=== PATIENT | male | born 1945 | race Caucasian/White ===

== ENCOUNTER 2017-05-11 09:58 | Emergency (ER) | payer MEDICARE, OTHER ==
[~2017-05-11] VITALS: Ht 172.7 cm; Wt 83.0 kg
[~2017-05-11 09:58] MED LIST: ACET-1862 PO; ALFU10TA28 PO; AMLO-96 PO; FAMO20TA28 PO; FEN145 PO; FLUC150T40 PO; HYDR-385 PO; IBUP800T37 PO; LAMO100T52 PO; LEVO-85 PO; LINA5TAB PO; LISI-362 PO; METF-420 PO; PHEN200T32 PO; SIMV-49 PO; SITA100T PO; SITA1TBM4 PO; SULI200T84 PO
[2017-05-11] MEDS ORDERED: LITH600C6 PO (10:08)
--- NOTE | 2017-05-11 10:13 | ER Report ---
History and Physical Time Seen By MD: 10:12 Hx. of Stated Complaint: PT. STATES HE IS STRESSED OUT FROM A LOT OF FAMILY DYNAMICS WITH HIS DAUGHTER. LOSS OF APPETITE, TROUBLE SLEEPING AND PHYSICAL AILMENTS. HPI/ROS Known history of bi polar disorder. Seen at [facility]. Currently taking [place]. Reports confusion, decreased sleep, agitation, family stressors, and an inability to focus. Denies SI/HI. Also reports a fall yesterday just outside of [place] on [place] sidewalk. No external signs of trauma. Says he feels so confused that he thinks maybe he shouldn't be driving. Has been taking his so to work at 0300 or 0400 most days. Appears to be manic. Disorganized and somewhat tangential. Preseverates about his daughter taking out a restraining order on him. He has the paperwork with him, and there is indeed a restraining order. Also in his packet that he brought are a series of emails he sent to various people about how he thinks his daughter's adopted children should be taken away from her. The emails are [employer]. Remainder of the 14 system rev: Yes Allergies: Coded Allergies: No Known Drug Allergies (Unverified , 05/11/17) Home Meds Reported Medications [place] Carbonate (LITHIUM CARBONATE) 600 Mg Capsule, 600 MG PO BID, CAPSULE 05/11/17 Sitagliptin Phos/Metformin Hcl (JANUMET XR 50-1,000 MG TABLET) 1 Each Tbmp.24hr , 1 EACH PO DAILY 02/14/17 Fenofibrate,Micronized (TRICOR) 145 Mg Tab, 145 MG PO QDAY, #10 TAB 02/14/17 Simvastatin (SIMVASTATIN) 20 Mg Tablet, 20 MG PO HS, TAB 02/14/17 Lisinopril (LISINOPRIL) 10 Mg Tablet, 10 MG PO QDAY, TAB 02/14/17 Lamotrigine (LAMOTRIGINE) 100 Mg Tablet, 100 MG PO HS 02/14/17 Acetaminophen (ARTHRITIS PAIN RELIEVER) 650 Mg Tablet.er, 650 MG PO DAILY Y for PAIN 02/14/17 Linagliptin (TRADJENTA) 5 Mg Tablet, 5 MG PO 11/27/13 Sulindac (SULINDAC) 200 Mg Tablet, 200 MG PO 11/27/13 Amlodipine Besylate (AMLODIPINE BESYLATE) 5 Mg Tablet, 1 TAB PO QDAY, TAB TAKE ONE TABLET BY MOUTH EVERY DAY 11/27/13 Reviewed Nurses Notes: Yes Old Medical Records Reviewed: Yes Hx Smoking: No Smoking Status: Never Smoker Exposure to Second Hand Smoke?: No Hx Substance Use Disorder: No Hx Alcohol Use: Yes Constitutional Intake and Output 05/11/17 05/11/17 05/12/17 15:00 23:00 07:00 Intake Total 1000 ml Balance 1000 ml Physical Exam General Appearance: The patient is alert, has no immediate need for airway protection and no signs of toxicity. Eyes: Pupils equal and round no pallor or injection. ENT, Mouth: Mucous membranes are moist. Respiratory: There are no retractions, lungs are clear to auscultation. Cardiovascular: Regular rate and rhythm. Gastrointestinal: Abdomen is soft and non tender, no masses, bowel sounds normal. Neurological: grossly normal. Normal gait Skin: Warm and dry, no rashes. Musculoskeletal: No bony TTP Neck is supple non tender. Extremities are nontender, nonswollen and have full range of motion. DIFFERENTIAL DIAGNOSIS: After history and physical exam differential diagnosis was considered for altered mental status including but not limited to hypoglycemia, infectious process, electrolyte abnormality, head injury and intoxicants. Medical Decision Making Data Points Result Diagram: 05/11/17 1020 05/11/17 1020 Laboratory Hematology Test 05/11/17 10:20 05/11/17 10:24 05/11/17 13:45 Red Blood Count 5.01 M/uL (4.00-5.60) Mean Corpuscular Volume 88.2 fL (80.0-96.0) Mean Corpuscular Hemoglobin 30.6 pg (26.0-33.0) Mean Corpuscular Hemoglobin Concent 34.7 g/dL (32.0-36.0) Red Cell Distribution Width 13.6 % (11.5-14.5) Mean Platelet Volume 8.1 fL (7.2-11.1) Neutrophils (%) (Auto) 81.5 % (39.4-72.5) Lymphocytes (%) (Auto) 10.3 % (17.6-49.6) Monocytes (%) (Auto) 6.6 % (4.1-12.4) Eosinophils (%) (Auto) 1.0 % (0.4-6.7) Basophils (%) (Auto) 0.6 % (0.3-1.4) Nucleated RBC Relative Count (auto) 0.0 /100WBC Neutrophils # (Auto) 9.9 K/uL (2.0-7.4) Lymphocytes # (Auto) 1.3 K/uL (1.3-3.6) Monocytes # (Auto) 0.8 K/uL (0.3-1.0) Eosinophils # (Auto) 0.1 K/uL (0.0-0.5) Basophils # (Auto) 0.1 K/uL (0.0-0.1) Nucleated RBC Absolute Count (auto) 0.00 K/uL Sodium Level 138 mmol/L (137-145) Potassium Level 3.8 mmol/L (3.5-5.0) Chloride Level 104 mmol/L (98-107) Carbon Dioxide Level 23 mmol/L (22-30) Blood Urea Nitrogen 19 mg/dl (9-21) Creatinine 1.10 mg/dl (0.66-1.25) Glomerular Filtration Rate Calc > 60.0 Random Glucose 182 mg/dl (75-110) Calcium Level 10.7 mg/dl (8.4-10.2) Magnesium Level 1.7 mg/dl (1.7-2.2) Total Bilirubin 0.7 mg/dl (0.2-1.3) Aspartate Amino Transf (AST/SGOT) 28 U/L (0-35) Alanine Aminotransferase (ALT/SGPT) 29 U/L (0-56) Alkaline Phosphatase 66 U/L (0-126) Total Protein 6.9 gm/dl (6.3-8.2) Albumin 3.9 g/dl (3.5-5.0) Thyroid Stimulating Hormone (TSH) 2.41 uIU/ml (0.46-4.68) Salicylates Level < 10 mg/L Salicylate Last Dose Date unknown Acetaminophen Level < 10 ug/ml Serum Alcohol < 10 mg/dl Urine Color Yellow Urine Clarity Clear Urine pH 7.0 pH (4.8-9.5) Urine Specific [place] 1.013 Urine Protein Negative mg/dL (NEGATIVE) Urine Glucose (UA) Negative mg/dL (NEGATIVE) Urine Ketones Negative mg/dL (NEGATIVE) Urine Blood Negative (NEGATIVE) Urine Nitrite Negative (NEGATIVE) Urine Bilirubin Negative (NEGATIVE) Urine Urobilinogen Negative mg/dL (0.2-1.9) Urine Leukocyte Esterase Negative (NEGATIVE) Urine RBC <1 /HPF (0-2/HPF) Urine WBC <1 /HPF (0-5/HPF) Urine Squamous Epithelial Cells None /LPF (</=FEW) Urine Bacteria Negative /HPF (NONE-FEW) Urine Mucus None /HPF (NONE-FEW) Urine Opiates Screen Negative Urine Barbiturates Screen Negative Ur Tricyclic Antidepressants Screen Negative Urine Phencyclidine Screen Negative Urine Amphetamines Screen Negative Urine Benzodiazepines Screen Negative Urine Cocaine Screen Negative Urine Cannabinoids Screen Negative [place] Level 1.4 mmol/L (0.6-1.2) Chemistry Test 05/11/17 10:20 05/11/17 10:24 05/11/17 13:45 White Blood Count 12.1 k/uL (4.5-11.0) Red Blood Count 5.01 M/uL (4.00-5.60) Hemoglobin 15.3 g/dL (14.0-18.0) Hematocrit 44.2 % (42.0-52.0) Mean Corpuscular Volume 88.2 fL (80.0-96.0) Mean Corpuscular Hemoglobin 30.6 pg (26.0-33.0) Mean Corpuscular Hemoglobin Concent 34.7 g/dL (32.0-36.0) Red Cell Distribution Width 13.6 % (11.5-14.5) Platelet Count 312 K/uL (150-450) Mean Platelet Volume 8.1 fL (7.2-11.1) Neutrophils (%) (Auto) 81.5 % (39.4-72.5) Lymphocytes (%) (Auto) 10.3 % (17.6-49.6) Monocytes (%) (Auto) 6.6 % (4.1-12.4) Eosinophils (%) (Auto) 1.0 % (0.4-6.7) Basophils (%) (Auto) 0.6 % (0.3-1.4) Nucleated RBC Relative Count (auto) 0.0 /100WBC Neutrophils # (Auto) 9.9 K/uL (2.0-7.4) Lymphocytes # (Auto) 1.3 K/uL (1.3-3.6) Monocytes # (Auto) 0.8 K/uL (0.3-1.0) Eosinophils # (Auto) 0.1 K/uL (0.0-0.5) Basophils # (Auto) 0.1 K/uL (0.0-0.1) Nucleated RBC Absolute Count (auto) 0.00 K/uL Glomerular Filtration Rate Calc > 60.0 Calcium Level 10.7 mg/dl (8.4-10.2) Magnesium Level 1.7 mg/dl (1.7-2.2) Total Bilirubin 0.7 mg/dl (0.2-1.3) Aspartate Amino Transf (AST/SGOT) 28 U/L (0-35) Alanine Aminotransferase (ALT/SGPT) 29 U/L (0-56) Alkaline Phosphatase 66 U/L (0-126) Total Protein 6.9 gm/dl (6.3-8.2) Albumin 3.9 g/dl (3.5-5.0) Thyroid Stimulating Hormone (TSH) 2.41 uIU/ml (0.46-4.68) Salicylates Level < 10 mg/L Salicylate Last Dose Date unknown Acetaminophen Level < 10 ug/ml Serum Alcohol < 10 mg/dl Urine Color Yellow Urine Clarity Clear Urine pH 7.0 pH (4.8-9.5) Urine Specific [place] 1.013 Urine Protein Negative mg/dL (NEGATIVE) Urine Glucose (UA) Negative mg/dL (NEGATIVE) Urine Ketones Negative mg/dL (NEGATIVE) Urine Blood Negative (NEGATIVE) Urine Nitrite Negative (NEGATIVE) Urine Bilirubin Negative (NEGATIVE) Urine Urobilinogen Negative mg/dL (0.2-1.9) Urine Leukocyte Esterase Negative (NEGATIVE) Urine RBC <1 /HPF (0-2/HPF) Urine WBC <1 /HPF (0-5/HPF) Urine Squamous Epithelial Cells None /LPF (</=FEW) Urine Bacteria Negative /HPF (NONE-FEW) Urine Mucus None /HPF (NONE-FEW) Urine Opiates Screen Negative Urine Barbiturates Screen Negative Ur Tricyclic Antidepressants Screen Negative Urine Phencyclidine Screen Negative Urine Amphetamines Screen Negative Urine Benzodiazepines Screen Negative Urine Cocaine Screen Negative Urine Cannabinoids Screen Negative [place] Level 1.4 mmol/L (0.6-1.2) Toxicology Test 05/11/17 10:20 05/11/17 10:24 05/11/17 13:45 Salicylates Level < 10 mg/L Salicylate Last Dose Date unknown Acetaminophen Level < 10 ug/ml Serum Alcohol < 10 mg/dl Urine Opiates Screen Negative Urine Barbiturates Screen Negative Ur Tricyclic Antidepressants Screen Negative Urine Phencyclidine Screen Negative Urine Amphetamines Screen Negative Urine Benzodiazepines Screen Negative Urine Cocaine Screen Negative Urine Cannabinoids Screen Negative [place] Level 1.4 mmol/L (0.6-1.2) Urinalysis Test 05/11/17 10:24 Urine Color Yellow Urine Clarity Clear Urine pH 7.0 pH (4.8-9.5) Urine Specific [place] 1.013 Urine Protein Negative mg/dL (NEGATIVE) Urine Glucose (UA) Negative mg/dL (NEGATIVE) Urine Ketones Negative mg/dL (NEGATIVE) Urine Blood Negative (NEGATIVE) Urine Nitrite Negative (NEGATIVE) Urine Bilirubin Negative (NEGATIVE) Urine Urobilinogen Negative mg/dL (0.2-1.9) Urine Leukocyte Esterase Negative (NEGATIVE) Urine RBC <1 /HPF (0-2/HPF) Urine WBC <1 /HPF (0-5/HPF) Urine Squamous Epithelial Cells None /LPF (</=FEW) Urine Bacteria Negative /HPF (NONE-FEW) Urine Mucus None /HPF (NONE-FEW) ED Course/Re-evaluation ED Course Known history of bi polar disorder. Seen at [facility]. Currently taking [place] which is mildly elevated. 1.5 before fluids and 1.4 after 1L NS. Reports confusion, decreased sleep, agitation, family stressors, and an inability to focus. He was tearful at times, but denies SI/HI. Also reports a fall yesterday just outside of [place] on the sidewalk. No external signs of trauma. Says he feels so confused that he thinks maybe he shouldn't be driving. Has been taking his so to work at 0300 or 0400 most days. Appears to be manic. Disorganized and somewhat tangential. Is amenable for psych admission. Decision to Disposition Date: May 11, 2017 Decision to Disposition Time: 15:22 Depart Departure Impression: Primary Impression: Manic behavior Condition: Improved Disposition: Admitted from ER QAMAR PERRIN MD May 11, 2017 10:13
[2017-05-11 10:33] LABS: PLATELET COUNT, AUTOMATED 312 K/uL (150-450)
[2017-05-11] MEDS ORDERED: NS(*) 0.9% 1000 ML BAG 1,000 ML IV ONE (12:40)
--- NOTE | 2017-05-11 13:49 | EKG ---
FACILITY: [facility] PATIENT NAME: CHING NAVA : [id number] MR: [id number] V: [id number] EXAM DATE: ORDERING PHYSICIAN: QAMAR PRERIN TECHNOLOGIST: GUY León Reason : PYSCH PROBLEM Blood Pressure : / mmHG Vent. Rate : 066 BPM Atrial Rate : 066 BPM P-R Int : 206 ms QRS Dur : 106 ms QT Int : 418 ms P-R-T Axes : 055 000 054 degrees QTc Int : 438 ms Normal sinus rhythm Nonspecific T wave abnormality Abnormal ECG When compared with ECG of 28-NOV-2013 08:56, No significant change was found Confirmed by SULEIMAN MOLINA ([id number]) on 05/12/2017 2:32:40 AM Referred By: Confirmed By:SULEIMAN MOLINA
--- NOTE | 2017-05-11 15:43 | RADIOLOGY IMAGING REPORT ---
FACILITY: [facility] PATIENT NAME: Jose Luis Carroll : 1945 MR: [id number] V: [id number] EXAM DATE: ORDERING PHYSICIAN: QAMAR PERRIN TECHNOLOGIST: Location: [facility] [place] Patient: Jose Luis Carroll : 1945 Visit/Account:[id number] Date of Sevice: 05/11/2017 CT Head without contrast Indication: Fall yesterday. Comparison: None available Technique: Axial CT images were obtained through the brain from the skull base to the vertex without administration of IV contrast. Reformatted coronal and sagittal images were also obtained. One of the following dose optimization techniques was utilized in the performance of this exam: autom ated exposure control; adjustment of the mA and/or kV according to the patient's size; or use of an i terative reconstruction technique. Specific details can be referenced in the facility's radiology CT exam operational policy. Findings: No evidence of mass, mass effect, or midline shift. No acute intracranial hemorrhage or acute territorial infarction. Along the lateral right frontal lobe is a prominent CSF space measuring 5.0 x 3.0 cm [place]oun[place] of 14 similar to the CSF. There is no suggestion of blood in this region. There is no other extra-axial fl uid collection. No hydrocephalus. No abnormal densities otherwise seen. The jurado/white matter differe ntiation appears normal. There is mild bilateral internal carotid artery calcifications. Bony structures show no fractures or lesions. The visualized paranasal sinuses and mastoid air cells are clear. IMPRESSION: 1. No acute intracranial abnormality. 2. Prominent CSF space along the right frontal lobe which may represent a prominent CSF space versus arachnoid cyst. No discrete indication of acute hemorrhage. Report Dictated By: Jose Meadows at 05/11/2017 3:32 PM Report E-Signed By: Jose Meadows at 05/11/2017 3:39 PM WSN:[id number]
[2017-05-11 16:01] VITALS: BP 181/104
== END 2017-05-11 16:08 | disposition other institution (70) ==
LOC: ER 09:59
DX: F30.9 Manic episode, unspecified (principal)
CPT/HCPCS: 70450; 80178; 80305; 81001; 83735; 84443; 85025; 93005; 96360; 99285; G0480; J7030; 80320; 80329; 82040; 82247; 82310; 82374; 82435; 82565; 82947; 84075; 84132; 84155; 84295; 84450; 84460; 84520

== ENCOUNTER 2017-05-11 15:14 | Inpatient (IN) | payer MEDICARE, OTHER ==
[~2017-05-11] VITALS: Ht 172.7 cm; Wt 77.1 kg
[~2017-05-11 15:14] MED LIST changes: +LITH600C6 PO
[2017-05-11] MEDS ORDERED: MAG HYD/AL HYD/SIMETH 30ML UDC PO PRN (16:30)
[2017-05-11] MEDS: lamoTRIgine 100 MG TAB PO SCH (21:00)
[2017-05-11] MEDS: QUEtiapine FUM 25 MG TAB PO SCH (21:00)
[2017-05-11 22:01] VITALS: BP 139/87
[2017-05-12 05:57] VITALS: BP 116/61
[2017-05-12] MEDS: ACETAMINOPHEN 325 MG TAB PO PRN ×2 (08:27→17:55)
[2017-05-12] MEDS: MULTIVITAMINS TAB PO SCH (08:27)
[2017-05-12] MEDS ORDERED: METFORMIN HCL PO SCH (11:20)
[2017-05-12] MEDS ORDERED: SITAGLIPTIN PHOS PO SCH (11:20)
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
[2017-05-12 18:35] VITALS: BP 165/62
[2017-05-12] MEDS: QUEtiapine FUM 25 MG TAB PO SCH (20:23)
[2017-05-12] MEDS: lamoTRIgine 100 MG TAB PO SCH (20:24)
[2017-05-13 03:53] VITALS: BP 165/84
[2017-05-13] MEDS: ACETAMINOPHEN 325 MG TAB PO PRN ×2 (07:31→17:43)
[2017-05-13] MEDS: MULTIVITAMINS TAB PO SCH (08:34)
[2017-05-13] MEDS: PSYLLIUM 28% 1 PACKET PO SCH (08:35)
[2017-05-13] MEDS: metFORMIN HCL XR 500 MG TABCR PO SCH (08:54)
[2017-05-13 12:28] VITALS: BP 189/85
--- NOTE | 2017-05-13 15:59 | BHS Progress Note ---
[facility] - Subjective Progress Notes Subjective "I have decided I am an alcoholic. I will stop drinking. I think I was drunk and I took too much of my lithium by mistake." Pt is remorseful today about his drinking and verbalizing intention to quit completely. Pt seen with team and his son present who is an important support for pt. Pt is recovering from lithium toxicity well, he says he feels almost back to baseline. Gait is steady , speech is clear,. Pt irritable with nursing staff this morning, later feeling remorseful about that. Slept fitfully last night, multiple awakenings to urinate, denies any other sx's of UTI. Says he was drinking a lot of water - - advised him to limit fluid after dinner. [place] lavel down to 0.6 this am, will restart lithium at 300 mg q hs and check level tomorrow-- depending on result may or may not go to 600mg tomorrow. Tolerating lamictal 150 mg well , denies rash, denies visual changes. Will continue therapy focus on alcohol education and sobriety supports. Suicidal Ideation: None Homicidal Ideation: None S - Objective Physical Exam Vital Signs Vital Signs 05/13/17 12:28 Temp 98.6 Pulse 74 Resp 16 B/P (MAP) 189/85 (119) Pulse Ox 95 O2 Delivery Room Air Muscle Strength and Tone: WNL S Medications Reviewed: Side Effects, Benefits of Medication Allergies Reviewed: Yes Mental Status Exam General Appearance: Casual, Good Eye Contact, Cooperative, Good Interaction Speech: Clear, Spontaneous, Normal Rate, Normal Rhythm, Normal Volume, Normal Tone Mood: Dysthmic/Depressed Affect: Other (labile) Thought Process: Organized, Logical, Goal Directed Thought Content: No Suicidal Ideation, No Homicidal Ideation, No Delusions, No Auditory Halllucinations, No Visual Hallucinations, No Thought Broadcasting, No Ideas of Reference, No Obsessions, No Compulsions, No Other Sensorium: Clear Cognition: Alert & Oriented-Person, Alert & Oriented-Place, Alert & Oriented- Time, [id number] Memory: Immediate, Recent Intelligence: Average Insight Judgment: Fair Lab Hematology Test 05/11/17 17:19 05/12/17 05:35 05/13/17 06:25 Whole Blood Glucose 179 mg/DL (75-110) Hemoglobin A1c 7.1 % (4.6-6.0) Triglycerides Level 173 mg/dl (0-250) Cholesterol Level 146 mg/dl (75-200) LDL Cholesterol 80 mg/dl VLDL Cholesterol 35 mg/dl HDL Cholesterol 31 mg/dl Percent HDL Cholesterol 21.0 % Cholesterol Ratio (LDL/HDL) 2.58 Cholesterol/HDL Ratio 4.7 Prostate Specific Antigen 3.31 ng/ml (0.0-4.0) Free Thyroxine 1.14 ng/dl (0.78-2.19) [place] Level 0.6 mmol/L (0.6-1.2) Chemistry Test 05/11/17 17:19 05/12/17 05:35 05/13/17 06:25 Whole Blood Glucose 179 mg/DL (75-110) Hemoglobin A1c 7.1 % (4.6-6.0) Triglycerides Level 173 mg/dl (0-250) Cholesterol Level 146 mg/dl (75-200) LDL Cholesterol 80 mg/dl VLDL Cholesterol 35 mg/dl HDL Cholesterol 31 mg/dl Percent HDL Cholesterol 21.0 % Cholesterol Ratio (LDL/HDL) 2.58 Cholesterol/HDL Ratio 4.7 Prostate Specific Antigen 3.31 ng/ml (0.0-4.0) Free Thyroxine 1.14 ng/dl (0.78-2.19) [place] Level 0.6 mmol/L (0.6-1.2) Toxicology Test 05/13/17 06:25 [place] Level 0.6 mmol/L (0.6-1.2) [facility] Assessment and Plan [id number] Encounter Date: May 13, 2017 [id number] Encounter Time: 10:00 [facility] Plan: Admit to Unit, Necessary Precautions, Individual/Group Therapy, Admin /Titrate Meds, Educate Patient Tobacco Medications: Not Appropriate Condition Problems: (1) [place] toxicity (2) Bipolar I disorder (3) Alcohol use disorder, moderate, in controlled environment LULU ZAVALA MD May 13, 2017 15:59
[2017-05-13 17:33] VITALS: BP 196/92
[2017-05-13] MEDS: lamoTRIgine 100 MG TAB PO SCH (20:52)
[2017-05-13] MEDS: QUEtiapine FUM 25 MG TAB PO SCH (20:52)
[2017-05-13] MEDS ORDERED: LITHIUM CARBONATE 300 MG CAP PO SCH (21:00)
[2017-05-13 21:05] VITALS: BP 194/96
[2017-05-14 06:48] VITALS: BP 138/74
[2017-05-14] MEDS: PSYLLIUM 28% 1 PACKET PO SCH (08:32)
[2017-05-14] MEDS: MULTIVITAMINS TAB PO SCH (08:32)
[2017-05-14] MEDS: metFORMIN HCL XR 500 MG TABCR PO SCH (08:32)
[2017-05-14] MEDS: ACETAMINOPHEN 325 MG TAB PO PRN ×2 (08:32→16:31)
[2017-05-14 10:50] VITALS: BP 177/85
--- NOTE | 2017-05-14 11:03 | BHS Progress Note ---
[facility] - Subjective Progress Notes Subjective Pt seen with his son and team. Pt says he is feeling better, and son agrees he is almost back to baseline though still has a little bit of word-finding difficulty which he points out: "See I'm still a little foggy." Pt has rash on the back of his left leg, about 4" by 3", dry, red. It does not look like a lamictal rash to me. We checked and there are no other areas of rash. Pt says he noticed it last night and it is a little better today. We outlined rash margins with a Sharpie and will continue the lamictal and continue to monitor the rash. Pt took 300 mg of lithium last night, he slept a bit better. Level was 0.5 this am. Will increase dose to 600 mg tonight. Suicidal Ideation: None Homicidal Ideation: None [facility] - Objective Physical Exam Vital Signs Vital Signs 05/13/17 05/14/17 17:33 06:48 Temp 99.1 Pulse 74 Resp 16 B/P (MAP) 138/74 (95) Pulse Ox 94 O2 Delivery Room Air Muscle Strength and Tone: WNL [facility] Medications Reviewed: Side Effects, Benefits of Medication Allergies Reviewed: Yes Mental Status Exam General Appearance: Casual, Good Eye Contact, Cooperative, Good Interaction Speech: Clear, Spontaneous, Normal Rate, Normal Rhythm, Normal Volume, Normal Tone Mood: Dysthmic/Depressed Affect: Other (labile) Thought Process: Organized, Logical, Goal Directed Thought Content: No Suicidal Ideation, No Homicidal Ideation, No Delusions, No Auditory Halllucinations, No Visual Hallucinations, No Thought Broadcasting, No Ideas of Reference, No Obsessions, No Compulsions, No Other Sensorium: Clear Cognition: Alert & Oriented-Person, Alert & Oriented-Place, Alert & Oriented- Time, [id number] Memory: Immediate, Recent Intelligence: Average Insight Judgment: Fair Lab Hematology Test 05/11/17 17:19 05/12/17 05:35 05/14/17 07:04 Whole Blood Glucose 179 mg/DL (75-110) Hemoglobin A1c 7.1 % (4.6-6.0) Triglycerides Level 173 mg/dl (0-250) Cholesterol Level 146 mg/dl (75-200) LDL Cholesterol 80 mg/dl VLDL Cholesterol 35 mg/dl HDL Cholesterol 31 mg/dl Percent HDL Cholesterol 21.0 % Cholesterol Ratio (LDL/HDL) 2.58 Cholesterol/HDL Ratio 4.7 Prostate Specific Antigen 3.31 ng/ml (0.0-4.0) Free Thyroxine 1.14 ng/dl (0.78-2.19) Free Triiodothyronine 2.9 pg/mL (2.4-4.2) Sweetser Level 0.5 mmol/L (0.6-1.2) Chemistry Test 05/11/17 17:19 05/12/17 05:35 05/14/17 07:04 Whole Blood Glucose 179 mg/DL (75-110) Hemoglobin A1c 7.1 % (4.6-6.0) Triglycerides Level 173 mg/dl (0-250) Cholesterol Level 146 mg/dl (75-200) LDL Cholesterol 80 mg/dl VLDL Cholesterol 35 mg/dl HDL Cholesterol 31 mg/dl Percent HDL Cholesterol 21.0 % Cholesterol Ratio (LDL/HDL) 2.58 Cholesterol/HDL Ratio 4.7 Prostate Specific Antigen 3.31 ng/ml (0.0-4.0) Free Thyroxine 1.14 ng/dl (0.78-2.19) Free Triiodothyronine 2.9 pg/mL (2.4-4.2) Sweetser Level 0.5 mmol/L (0.6-1.2) Toxicology Test 05/14/17 07:04 Sweetser Level 0.5 mmol/L (0.6-1.2) [facility] Assessment and Plan [id number] Encounter Date: May 14, 2017 [id number] Encounter Time: 10:00 [facility] Plan: Admit to Unit, Necessary Precautions, Individual/Group Therapy, Admin /Titrate Meds, Educate Patient Tobacco Medications: Not Appropriate Condition Problems: (1) Sweetser toxicity (2) Bipolar I disorder (3) Alcohol use disorder, moderate, in controlled environment LULU ZAVALA MD May 14, 2017 11:03
[2017-05-14 20:30] VITALS: BP 150/88
[2017-05-14] MEDS: lamoTRIgine 100 MG TAB PO SCH (20:30)
[2017-05-14] MEDS: QUEtiapine FUM 25 MG TAB PO SCH (20:30)
[2017-05-14] MEDS ORDERED: LITHIUM CARBONATE 300 MG CAP PO SCH (21:00)
[2017-05-15 06:07] VITALS: BP 165/88
[2017-05-15] MEDS: PSYLLIUM 28% 1 PACKET PO SCH (08:07)
[2017-05-15] MEDS: MULTIVITAMINS TAB PO SCH (08:08)
[2017-05-15] MEDS: metFORMIN HCL XR 500 MG TABCR PO SCH (08:08)
[2017-05-15] MEDS: ACETAMINOPHEN 325 MG TAB PO PRN (08:09)
[2017-05-15] MEDS ORDERED: LISINOPRIL 10 MG TAB PO SCH (09:00)
[2017-05-15 09:23] LABS: PLATELET COUNT, AUTOMATED 271 K/uL (150-450)
[2017-05-15] MEDS ORDERED: PSYL0.5241 PO (09:40)
[2017-05-15] MEDS ORDERED: MULT-964 PO (09:40)
[2017-05-15] MEDS ORDERED: QUET50TA21 PO (09:41)
[2017-05-15] MEDS ORDERED: LISI-362 PO (09:42)
--- NOTE | 2017-05-17 00:31 | DISCHARGE SUMMARY ---
DATE OF ADMISSION: May 11, 2017 DATE OF DISCHARGE: May 15, 2017 FINAL DIAGNOSES PER DSM-V Bipolar 1 disorder, most recent episode unknown. Alcohol use disorder, moderate. Arden toxicity, resolved. This patient was seen on the morning of May 15, 2017 at 0900 hours. REASON FOR ADMISSION This is a 71-year-old male who has long suffered from bipolar disorder. Patient historically has remained stable and out of the hospital on lithium. Patient presented to the emergency room on May 11, 2017 in a state of what was initially described as manic behavior. Patient was likely suffering from the effects of lithium toxicity. Patient was admitted without incident to the Behavioral Health Unit. Patient notably sleeping well on the unit. Arden levels were elevated. These resolved with the cessation of lithium and fluids. Patient continued to improve. Lamictal initially prescribed by outpatient providers was increased to 150 mg at bedtime. Patient continued to improve. Arden was then reintroduced at half of outpatient dose which was 600 mg at bedtime. Patient's tremor subsided. Patient's ambulation returned to baseline. Patient's cognition and speech returned to baseline as well. Patient took an active role in his treatment, patient sleeping well, eating well and mood was considered stable and good at the time of discharge. PHYSICAL EXAMINATION GENERAL: Please see emergency room note. Notable for a 71-year-old male. VITAL SIGNS: Pulse of 69, blood pressure 181/104 and pulse oximetry 95 on room air at the time of admission. At the time of discharge from Behavioral Health Unit, temperature 99.4 pulse 73, respiratory rate 16, blood pressure 165/88 and pulse oximetry 94 on room air. LABORATORY DATA Arden level initially was 1.5. After some fluids were administered, patient was down to 1.4, still elevated at the time of admission. Toxicology screen was negative. Serum alcohol level was nondetectable. Chemistry panel at the time of admission did show random glucose of 182 in this non-insulin dependent diabetic patient. Calcium was elevated at 10.7 and TSH 2.41. CBC notable for white blood cells elevated at 12.1 at the time of admission, otherwise unremarkable. CBC on May 15, 2017 unremarkable. Chemistry panel on May 15, 2017 was notable for random glucose elevated at 263. It is notable that this patient's hemoglobin A1c was measured at 7.1 with an unremarkable lipid panel. Arden level on May 15, 2017 noted to be 0.7, in normal range. MENTAL STATUS EXAMINATION AT THE TIME OF DISCHARGE GENERAL APPEARANCE, BEHAVIOR AND ATTITUDE: This is a polite, cooperative 71- year-old male making good eye contact. No bizarre mannerisms or tics. No psychomotor agitation or retardation. Patient interacting well, nontearful. SPEECH: Within normal limits, regular rate, rhythm volume and tone. MOOD: Described as good. AFFECT: Full and bright. THOUGHT PROCESSES: Logical, goal directed. No loose associations or flight of ideas. THOUGHT CONTENT: Free of auditory or visual hallucinations, ideas of reference , thought broadcastings, delusions, obsessions, compulsions. Patient adamantly denying suicidal or homicidal ideation. SENSORIUM: Clear. COGNITION: Alert and oriented to person, place, time and situation. MEMORY: Immediate, recent and remote estimated intact. INTELLIGENCE: Average based on interview. INSIGHT AND JUDGMENT: Considered grossly intact and appropriate for ongoing outpatient management. RESULTS OF TESTING IMAGING: Please see electronic record for full head CT report. Did indicate no acute intracranial abnormality, however, there was a prominent CSF space along the right frontal lobe, which may represent a prominent CSF space versus arachnoid cyst. No discrete indication of acute hemorrhage. LABORATORY DATA: See above. CONSULTATIONS: None. TREATMENT Patient received medications, participated in individual and group therapy. HOSPITAL COURSE Patient's overall condition continued to improve as lithium levels were reduced. Patient's appetite good. Patient's sleep good. Exhibiting no manic or depressed features. Patient was started on increased dose of Lamictal, with slightly increased dose of Seroquel at night as well, and continued to improve. CONDITION OF PATIENT ON DISCHARGE Stable. Considered minimal risk to himself or others and appropriate for outpatient care. DISPOSITION Patient was discharged to home. He would follow up with Dr. Tan [facility], as well as follow up with mental health for medications, management and therapy. Arden level would be rechecked in one month. Crisis line was given should symptoms return. At the time of discharge patient was on Janumet XR mg tablet two each daily for diabetic control, lithium carbonate 600 mg at bedtime, Lamictal 150 mg at bedtime, Metamucil powder one packet daily, Seroquel 50-75 mg p.o. at bedtime for any manic symptoms or poor sleep. Patient has at home. Multivitamin with minerals daily, and patient was started lisinopril 10 mg p.o. q.a.m. Patient would hold amlodipine until he would see outpatient provider for further treatment of any hypertension. Patient would avoid NSAIDs and contact ER if any symptoms of lithium toxicity returned. Patient noted to be interacting well with his son who lives in the local area at the time of discharge. Please see H and P for full details. Crisis line was given should symptoms return. Patient also agreed to abstain from all alcohol. Risks, benefits and alternatives of the above discharge plan were discussed. Informed consent was given to proceed with above discharge plan by this competent patient. JONATAN
[2017-05-19] MEDS ORDERED: CYAN500T38 PO (08:22)
[2017-05-19] MEDS ORDERED: OMEG92TA PO (08:22)
[2017-05-19] MEDS ORDERED: LIT300CAP PO (08:22)
[2017-05-19] MEDS ORDERED: QUET25TA PO (08:22)
[2017-05-19] MEDS ORDERED: [UNRECOGNIZED DRUG - OTHER] PO (08:22)
[2017-05-19] MEDS ORDERED: DEXT-116 PO (08:22)
[2017-05-19] MEDS ORDERED: LAMO150T36 PO (08:22)
== END 2017-05-15 11:55 | disposition home or self-care (01) | DRG 918 ==
LOC: BHS 15:14 → UNDOADMIN 15:14
PROVIDERS: ADMIT Psychiatry & Neurology Psychiatry; ATTEND Psychiatry & Neurology Psychiatry
DX: T56.894A Toxic effect of other metals, undetermined, initial encounter (principal); F31.9 Bipolar disorder, unspecified; F10.20 Alcohol dependence, uncomplicated; E11.9 Type 2 diabetes mellitus without complications; E78.5 Hyperlipidemia, unspecified; R03.0 Elevated blood-pressure reading, without diagnosis of hypertension
CPT/HCPCS: 36415; 36416; 70450; 80178; 80305; 80320; 80329; 81001; 82040; 82247; 82310; 82374; 82435; 82465; 82565; 82947; 82948; 83036; 83718; 83735; 84075; 84132; 84153; 84155; 84295; 84439; 84443; 84450; 84460; 84478; 84481; 84520; 85025; 93005; 96360; 99285; J7030

== ENCOUNTER → 2017-06-19 | Outpatient (CLI) | payer MEDICARE, OTHER ==
[~2017-06-19] MED LIST changes: +CYAN500T38 PO; +DEXT-116 PO; +DICL100G39 TOP; +LAMO150T36 PO; +LIT300CAP PO; +MULT-964 PO; +OMEG92TA PO; +PSYL0.5241 PO; +QUET25TA PO; +QUET50TA21 PO; +[UNRECOGNIZED DRUG - OTHER] PO
== END ==
LOC: LAB 09:40
PROVIDERS: ATTEND Family Medicine
DX: Z51.81 Encounter for therapeutic drug level monitoring (principal); Z79.899 Other long term (current) drug therapy; I10 Essential (primary) hypertension
CPT/HCPCS: 36415; 80178; 82040; 82247; 82310; 82374; 82435; 82565; 82947; 84075; 84132; 84155; 84295; 84450; 84460; 84520

== ENCOUNTER → 2017-09-13 | Outpatient (CLI) | payer MEDICARE, OTHER ==
[~2017-09-13] MED LIST changes: +LISI20TA29 PO; -METF-420 PO; +METF-421 PO
== END ==
LOC: LAB 15:56
PROVIDERS: ATTEND Family Medicine
DX: Z79.899 Other long term (current) drug therapy (principal)
CPT/HCPCS: 36415; 80178

== ENCOUNTER → 2017-11-16 | Outpatient (CLI) | payer MEDICARE, OTHER | LOC: LAB 16:18 | PROVIDERS: ATTEND Family Medicine | DX: E11.9 Type 2 diabetes mellitus without complications (principal) | CPT/HCPCS: 36415; 82040; 82247; 82310; 82374; 82435; 82565; 82947; 83036; 84075; 84132; 84155; 84295; 84450; 84460; 84520 ==

== ENCOUNTER → 2018-08-06 | Outpatient (CLI) | payer MEDICARE, OTHER ==
[~2018-08-06] MED LIST changes: +AMLO-125 PO; +AMLO-127 PO; -AMLO-96 PO; +ATOR20TA65 PO; -DEXT-116 PO; +DEXT-60 PO; +FLU180SY11 IM; +FLUT16SP19 NS; +GLIM1TAB25 PO; -METF-421 PO; +METF-452 PO; +PNEU0.5D3 IM; +TAMS0.4C25 PO
== END ==
LOC: LAB 12:13
PROVIDERS: ATTEND Family Medicine
DX: E11.9 Type 2 diabetes mellitus without complications (principal)
CPT/HCPCS: 36415; 82040; 82247; 82310; 82374; 82435; 82565; 82947; 83036; 84075; 84132; 84155; 84295; 84450; 84460; 84520

== ENCOUNTER → 2018-11-05 | Outpatient (CLI) | payer MEDICARE, OTHER ==
[~2018-11-05] MED LIST changes: -CYAN500T38 PO; +CYAN500T39 PO
== END ==
LOC: LAB 08:46
PROVIDERS: ATTEND Family Medicine
DX: E11.9 Type 2 diabetes mellitus without complications (principal)
CPT/HCPCS: 36415; 82310; 82374; 82435; 82565; 82947; 83036; 84132; 84295; 84520